=== PATIENT | female | born 1940 | race Hispanic/Latino ===

== ENCOUNTER 2020-11-06 07:09 | Day surgery (SDC) | payer OTHER ==
[2020-11-06] MEDS ORDERED: Ringers Lactate 1,000 ML IV ONE (07:39)
--- NOTE | 2020-11-06 09:35 | ENDO RPT ---
[address], [address] COLONOSCOPY PROCEDURE REPORT EXAM DATE: 11/06/2020 PATIENT NAME: Netta Vasquez MR #: [id number] BIRTHDATE: 1940 ATTENDING: Blair Marsh DR STATUS: outpatient DOG LICENSE OFFICER SUPERVISOR: Ayesha Edmondson RN and Amparo Bustamante CST INDICATIONS: The patient is a 80 yr old Female here for a colonoscopy due to colon cancer screening and diverticulosis PROCEDURE PERFORMED: Flexible Sigmoidoscopy MEDICATIONS: Per Anesthesia. ESTIMATED BLOOD LOSS: None CONSENT: The patient understands the risks and benefits of the procedure and understands that these risks include, but are not limited to: sedation, allergic reaction, infection, perforation and/or bleeding. Alternative means of evaluation and treatment include, among others: physical exam, x-rays, and/or surgical intervention. The patient elects to proceed with this endoscopic procedure. DESCRIPTION OF PROCEDURE: During intra-op preparation period all mechanical medical equipment was checked for proper function. Hand hygiene and appropriate measures for infection prevention was taken. Procedure, possible complications, alternatives including, but not limited to possibility of bleeding, perforation, tear, infection, sepsis, need for surgery, need for blood transfusion, were explained to the patient. After the risks, benefits and alternatives of the procedure were thoroughly explained, Informed consent was verified, confirmed and timeout was successfully executed by the treatment team. The patient was placed in the left lateral position. A digital rectal exam was performed and revealed internal hemorrhoids and A digital rectal exam was performed and revealed external hemorrhoids. After appropriate level of anesthesia, the scope was passed. The EC-[id number] ([id number]) and EC-[id number] ([id number]) endoscope was introduced through the anus and advanced to the sigmoid colon as the sigmoid colon was tortuous with angulation. The quality of the prep was fair. The instrument was then slowly withdrawn as the colon was NOT fully examined. Scope withdrawal time was 5 minutes. COLON FINDINGS: There was severe diverticulosis noted in the sigmoid colon with associated tortuosity, angulation, colonic spasm and petechiae. No bleeding was noted from the diverticulosis. Retroflexed views revealed no abnormalities. The scope was then completely withdrawn from the patient and the procedure terminated. ADVERSE EVENTS: There were no complications. IMPRESSIONS: 1. There was severe diverticulosis noted in the sigmoid colon 2. Internal hemorrhoids RECOMMENDATIONS: 1. avoid NSAIDS for 2 weeks 2. follow-up: office 2 week(s) 3. Monitor for any evidence of rectal bleeding. 4. yearly hemoquant 5. hemorrhoidal hygiene 6. increase dietary water 7. barium enema RECALL: for Colonoscopy. Blair Marsh DR eSigned: Blair Marsh DR 11/06/2020 9:34 AM cc: CPT CODES: ICD9 CODES: PATIENT NAME: Netta Vasquez MR#: [id number]
[2020-11-06] MEDS ORDERED: propofoL 200 MG/20 ML VIAL IV ONE ×2 (10:03)
[2020-11-06] MEDS ORDERED: LIDOCAINE 1% MPF 30 ML VIAL ONE (10:03)
[2020-11-06] MEDS ORDERED: GLYCOPYRROLATE 0.2 MG/ML SYR ONE (10:03)
[2020-11-06] MEDS ORDERED: MIDAZOLAM HCL 2 MG/2 ML INJ ONE (10:03)
[2020-11-06 10:53] VITALS: TEMP 96.7
[2020-11-06 10:54] VITALS: BP 106/83; O2SAT 99
== END 2020-11-06 10:10 | disposition home or self-care (01) ==
LOC: OR 07:09
PROVIDERS: ATTEND Surgery
PROC: 0DJD8ZZ Inspection of Lower Intestinal Tract, Via Natural or Artificial Opening Endoscopic (ICD-10-PCS; principal; 2020-11-06 08:30)
DX: K57.30 Diverticulosis of large intestine without perforation or abscess without bleeding (principal); K64.8 Other hemorrhoids; Z20.822 Contact with and (suspected) exposure to COVID-19; Z86.010 Personal history of colon polyps
CPT/HCPCS: 45378; U0003; J2704 ×2; J2250; J7120

== ENCOUNTER 2021-06-25 07:14 | Day surgery (SDC) | payer OTHER ==
[2021-06-25] MEDS ORDERED: Ringers Lactate 1,000 ML IV ONE (07:34)
[2021-06-25] MEDS ORDERED: propofoL 200 MG/20 ML VIAL IV ONE ×2 (08:26→08:36)
[2021-06-25] MEDS ORDERED: LIDOCAINE 1% MPF 5 ML VIAL ONE (08:26)
--- NOTE | 2021-06-25 09:06 | ENDO RPT ---
[address], [address] COLONOSCOPY PROCEDURE REPORT EXAM DATE: 06/25/2021 PATIENT NAME: Netta Vasquez MR #: [id number] BIRTHDATE: 1940 ATTENDING: Blair Marsh DR STATUS: outpatient SAND MILL GRINDER: Abraham Prince and Erica Castaneda RN INDICATIONS: The patient is a 80 yr old Female here for a colonoscopy due to colon cancer screening and Stricture PROCEDURE PERFORMED: Colonoscopy with biopsy MEDICATIONS: Per Anesthesia. ESTIMATED BLOOD LOSS: None CONSENT: The patient understands the risks and benefits of the procedure and understands that these risks include, but are not limited to: sedation, allergic reaction, infection, perforation and/or bleeding. Alternative means of evaluation and treatment include, among others: physical exam, x-rays, and/or surgical intervention. The patient elects to proceed with this endoscopic procedure. DESCRIPTION OF PROCEDURE: During intra-op preparation period all mechanical medical equipment was checked for proper function. Hand hygiene and appropriate measures for infection prevention was taken. Procedure, possible complications, alternatives including, but not limited to possibility of bleeding, perforation, tear, infection, sepsis, need for surgery, need for blood transfusion, were explained to the patient. After the risks, benefits and alternatives of the procedure were thoroughly explained, Informed consent was verified, confirmed and timeout was successfully executed by the treatment team. The patient was placed in the left lateral position. A digital rectal exam was performed and revealed internal hemorrhoids. After appropriate level of anesthesia, the scope was passed. The EC-[id number] ([id number]) endoscope was introduced through the anus and advanced to the descending colon. The quality of the prep was poor. The instrument was then slowly withdrawn as the colon was fully examined. Scope withdrawal time was 15 minutes. COLON FINDINGS: There was moderate diverticulosis noted in the sigmoid colon and descending colon with associated angulation, tortuosity, colonic narrowing, luminal narrowing and petechiae. A biopsy was performed with cold forcepts from the area of colonic narrowing @ 45cm from verge. No bleeding was noted from the diverticulosis. Retroflexed views revealed no abnormalities. The scope was then completely withdrawn from the patient and the procedure terminated. ADVERSE EVENTS: There were no complications. IMPRESSIONS: 1. There was moderate diverticulosis noted in the sigmoid colon and descending colon 2. Colonic stricture RECOMMENDATIONS: 1. avoid NSAIDS for 2 weeks 2. await biopsy results 3. follow-up: office 2 week(s) 4. Monitor for any evidence of rectal bleeding. 5. hemorrhoidal hygiene 6. yearly hemoquant 7. low fiber / diverticular diet RECALL: Blair Marsh DR eSigned: Blair Marsh DR 06/25/2021 9:06 AM cc: CPT CODES: ICD9 CODES: PATIENT NAME: Netta Vasquez MR#: [id number]
[2021-06-25 10:04] VITALS: BP 168/64; O2SAT 100
[2021-06-25 10:05] VITALS: TEMP 97
== END 2021-06-25 09:58 | disposition home or self-care (01) ==
LOC: OR 07:14
PROVIDERS: ATTEND Surgery
PROC: 0DBL8ZX Excision of Transverse Colon, Via Natural or Artificial Opening Endoscopic, Diagnostic (ICD-10-PCS; principal; 2021-06-25 08:30)
DX: K56.699 Other intestinal obstruction unspecified as to partial versus complete obstruction (principal); Z86.010 Personal history of colon polyps; Z20.822 Contact with and (suspected) exposure to COVID-19; K64.8 Other hemorrhoids; K57.30 Diverticulosis of large intestine without perforation or abscess without bleeding
CPT/HCPCS: 88305; 45380; U0003; J2704 ×2; J7120

== ENCOUNTER 2023-06-11 09:15 | Observation (INO) | payer OTHER ==
[2023-06-11] MEDS ORDERED: AMIODARONE HCL 150 MG/3 ML INJ IV ONE (09:25)
[2023-06-11] MEDS ORDERED: AMIODARONE IN DEXTROSE,ISO-OSM 360 MG/200 ML BAG IV ONE (09:25)
[2023-06-11 09:50] LABS: Absolute Basophils 0.1 K/uL (0-0.5); Absolute Eosinophils 0.1 K/uL (0-0.5); Absolute Lymphocytes (CBC) 0.8 K/uL (0.7-4.9); Absolute Monocytes 0.4 K/uL (0.1-1.3); Absolute Neutrophil 5.4 K/uL (1.8-8.0); Basophils % 1.2 % (0-1.3); Eosinophils % 1.1 % (0-4.4); Hematocrit 29.8 % (36.0-45.0); Hemoglobin 10.1 g/dL (12.0-15.0); Lymphocytes % 11.5 % (15.3-44.8); MCH 30.2 pg (27.0-35.0); MCHC 33.8 g/dL (32.0-36.0); MCV 89.3 fL (80-100); MPV 8.1 fL (7.6-11.3); Monocytes % 6.2 % (3.3-12.3); Platelets 350 thou/uL (152-406); RBC Red Blood Cell Count 3.34 M/uL (3.86-4.86); Red Cell Distribution Width 17.9 % (12.1-15.2)
[2023-06-11 09:51] LABS: PT Prothrombin Time 12.9 SECONDS (9.5-12.5); Protime INR 1.18
[2023-06-11 10:06] LABS: Albumin 2.9 g/dL (3.4-5.0); Albumin/Globulin Ratio 0.7 (1.1-1.8); Anion Gap 9.3 mEq/L (5.0-15.0); Bilirubin Direct 0.3 mg/dL (0-0.2); Bilirubin Indirect, Calculated 0.3 mg/dL (0.2-0.8); Bilirubin Total 0.6 mg/dL (0.2-1.0); Globulin 4.4 g/dL (2.3-3.5); Potassium 4.3 mEq/L (3.5-5.1); Protein, Total 7.3 g/dL (6.4-8.2); Troponin High Sensitivity 13.4 pg/mL (<58.9)
--- NOTE | 2023-06-11 10:16 | ER ---
Nurse's Notes [facility] Name: Netta Vasquez Age: 82 yrs Sex: Female : 1940 Arrival Date: 06/11/2023 Time: 09:15 Bed 5 Private MD: Diagnosis: Palpitations, atrial fibrillation with RVR Presentation: 06/10 09:22 Initial Sepsis Screen: Does the patient meet any 2 criteria? No. Patient's initial kc6 sepsis screen is negative. Does the patient have a suspected source of infection? No. Patient's initial sepsis screen is negative. 09:28 Chief complaint: Patient states: had open heart surgery for aortic aneurysm and a valve iw replacement on May 21, was having her follow up appt with [facility] and was noted to be in Afib RVR , sent to ER for treatment. Coronavirus screen: At this time, the client does not indicate any symptoms associated with coronavirus-19. Ebola Screen: Patient negative for fever greater than or equal to 101.5 degrees Fahrenheit, and additional compatible Ebola Virus Disease symptoms Patient denies exposure to infectious person. Patient denies travel to an Ebola-affected area in the 21 days before illness onset. No symptoms or risks identified at this time. Risk Assessment: Do you want to hurt yourself or someone else? Patient reports no desire to harm self or others. Onset of symptoms was June 11, 2023. 09:28 Method Of Arrival: Ambulatory iw 09:28 Acuity: AMRINA 2 iw Historical: - Allergies: 09:22 No Known Allergies; kc6 - PMHx: 09:22 aortic aneurysm; Hypertensive disorder; kc6 - PSHx: 09:22 foot surgery; Coronary artery bypass graft; kc6 - Immunization history:: Adult Immunizations up to date. - Infectious Disease History:: Denies. - Social history:: Smoking status: Patient denies any tobacco usage or history of. Screenin: [facility] ED Fall Risk Assessment (Adult) History of falling in the last 3 months, kc6 including since admission No falls in past 3 months (0 pts) Confusion or Disorientation No (0 pts) Intoxicated or Sedated No (0 pts) Impaired Gait No (0 pts) Mobility Assist Device Used No (0 pt) Altered Elimination No (0 pt) Score/Fall Risk Level 0 - 2 = Low Risk. Abuse screen: Denies threats or abuse. Denies injuries from another. Nutritional screening: No deficits noted. Tuberculosis screening: No symptoms or risk factors identified. Assessment: 09:22 General: Appears in no apparent distress. comfortable, well groomed, well developed, kc6 Behavior is calm, cooperative, appropriate for age. Pain: Denies pain. Neuro: Level of Consciousness is awake, alert, obeys commands, Oriented to person, place, time, situation, Appropriate for age. Cardiovascular: Denies chest pain, Heart tones S1 S2 present Capillary refill < 3 seconds Rhythm is atrial fibrillation with rapid ventricular response. Respiratory: Airway is patent Trachea midline Respiratory effort is even, unlabored, Respiratory pattern is regular, symmetrical, Denies shortness of breath. GI: No signs and/or symptoms were reported involving the gastrointestinal system. : No signs and/or symptoms were reported regarding the genitourinary system. EENT: No signs and/or symptoms were reported regarding the EENT system. Derm: No signs and/or symptoms reported regarding the dermatologic system. Skin is intact, is healthy with good turgor, Skin is pink, warm \T\ dry. Musculoskeletal: No signs and/or symptoms reported regarding the musculoskeletal system. Circulation, motion, and sensation intact. Capillary refill < 3 seconds, Range of motion: intact in all extremities. 10:13 Reassessment: pt appears to be sinus allan at bpm. Per Dr. Winter , discontinue the drip kc6 and repeat EKG. 10:22 Reassessment: Patient appears in no apparent distress at this time. No changes from kc6 previously documented assessment. Patient and/or family updated on plan of care and expected duration. Pain level reassessed. Patient is alert, oriented x 3, equal unlabored respirations, skin warm/dry/pink. 11:22 Reassessment: Patient appears in no apparent distress at this time. No changes from kc6 previously documented assessment. Patient and/or family updated on plan of care and expected duration. Pain level reassessed. Patient is alert, oriented x 3, equal unlabored respirations, skin warm/dry/pink. 12:20 Reassessment: Patient appears in no apparent distress at this time. No changes from kc6 previously documented assessment. Patient and/or family updated on plan of care and expected duration. Pain level reassessed. Patient is alert, oriented x 3, equal unlabored respirations, skin warm/dry/pink. 13:14 Reassessment: Patient appears in no apparent distress at this time. No changes from kc6 previously documented assessment. Patient and/or family updated on plan of care and expected duration. Pain level reassessed. Patient is alert, oriented x 3, equal unlabored respirations, skin warm/dry/pink. Vital Signs: 09:22 BP 130 / 87; Pulse 99; Resp 15 S; Temp 98.2(TE); Pulse Ox 98% on R/A; Weight 68.04 kg kc6 (R); Height 5 ft. 1 in. ; Pain 0/10; 09:54 BP 128 / 61; Pulse 106; Resp 16 S; Pulse Ox 96% on R/A; kc6 10:14 BP 128 / 62; Pulse 49; Resp 16 S; Pulse Ox 95% on R/A; kc6 10:51 BP 130 / 61; Pulse 59; Resp 16 S; Pulse Ox 92% on R/A; kc6 11:22 BP 123 / 53; Pulse 50; Resp 16; Pulse Ox 97% ; ko1 11:47 BP 109 / 51; Pulse 52; Resp 16 S; Pulse Ox 96% on R/A; kc6 13:14 BP 113 / 65; Pulse 52; Resp 16 S; Pulse Ox 93% on R/A; kc6 09:22 Body Mass Index 28.34 (68.04 kg, 154.94 cm) kc6 09:22 Pain Scale: Adult kc6 Vitals: 10:12 Cardiac Rhythm Assessment Sinus allan. kc6 11:22 Cardiac Rhythm Assessment Sinus allan. ko1 ED Course: 09:16 Patient arrived in ED. im 09:18 Yimi Winter MD is Attending Physician. sp3 09:22 Arm band placed on. EKG completed in triage. Results shown to MD. kc6 09:22 Patient has correct armband on for positive identification. Placed in gown. Bed in low kc6 position. Call light in reach. Side rails up X2. Adult w/ patient. Client placed on continuous cardiac and pulse oximetry monitoring. NIBP monitoring applied. desk monitor on. Door closed. Noise minimized. Lights dimmed. Warm blanket given. Pillow given. 09:22 Inserted saline lock: 20 gauge in right antecubital area, using aseptic technique. kc6 Blood collected. 09:33 Triage completed. iw 09:48 XRAY Chest (1 view) In Process Unspecified. EDMS 09:50 Liz Latif, ALEA is Primary Nurse. kc6 10:16 Jatin Parikh is Hospitalizing Provider. sp3 11:11 Hospitalizing Provider role handed off by Jatin Parikh sp3 11:11 Jose Boone MD is Hospitalizing Provider. sp3 11:23 Provided Education on: medications, admission. ko1 11:23 No provider procedures requiring assistance completed. Patient admitted, IV remains in ko1 place. Administered Medications: 10:15 Discontinued: [id number] mg, d5w iv 500 ml IVPB at 1 mg/min continuous; for 6 hrs, kc6 then change to 0.5 mg/min 09:43 Drug: amiodarone IVP 300 mg IVP once Route: IVP; Site: right antecubital; kc6 09:57 Follow up: Response: No adverse reaction; Cardiac rhythm changed kc6 09:44 Drug: amiodarone IVPB 900 mg, D5W IV 500 ml IVPB at 1 mg/min continuous; for 6 hrs, kc6 then change to 0.5 mg/min Route: IVPB; Rate: 1 mg/min; Site: right antecubital; 10:51 Follow up: Response: No adverse reaction; Cardiac rhythm changed; IV Status: Order to kc6 discontinue infusion Medication: 11:23 VIS not applicable for this client. ko1 Outcome: 10:16 Decision to Hospitalize by Provider. sp3 11:23 Admitted to ER Hold. Please see [facility] for further documentation. ko1 11:23 Condition: stable 11:23 Instructed on the need for admit, 13:30 Patient left the ED. ko1 Signatures: Dispatcher [employer] EDMS Fiordaliza Curtis RN RN iw Patel, Setul, MD MD sp3 Liz Latif RN RN kc6 Ashley Bender RN RN ko1 Amelia Patino Corrections: (The following items were deleted from the chart) 09:53 09:22 Allergies: No Known Allergies; kc6 kc6 09:53 09:22 PMHx: Coronary atherosclerosis; kc6 kc6
--- NOTE | 2023-06-11 10:16 | EDPHYS ---
Physician Documentation [facility] Name: Netta Vasquez Age: 82 yrs Sex: Female : 1940 Arrival Date: 06/11/2023 Time: 09:15 Bed 5 Private MD: ED Physician Yimi Winter HPI: 06/10 09:31 This 82 yrs old Female presents to ER via Unassigned with complaints of A-fib. 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 Patient is not currently anticoagulated. Patient been tried on amiodarone in the past which was discontinued. Clean Up Supervisor has asked us to restart amiodarone upon arrival. She denies any chest pain, shortness of breath, back pain, bleeding, abdominal pain, vomiting, diarrhea, or any other signs or symptoms other than the palpitations. ROS otherwise negative.. Historical: - Allergies: 09:22 No Known Allergies; kc6 - PMHx: 09:22 aortic aneurysm; Hypertensive disorder; kc6 - PSHx: 09:22 foot surgery; Coronary artery bypass graft; kc6 - Immunization history:: Adult Immunizations up to date. - Infectious Disease History:: Denies. - Social history:: Smoking status: Patient denies any tobacco usage or history of. ROS: 09:32 Constitutional: Negative for fever, chills, and weight loss, Eyes: Negative for injury, sp3 pain, redness, and discharge, ENT: Negative for injury, pain, and discharge, Neck: Negative for injury, pain, and swelling, Respiratory: Negative for shortness of breath, cough, wheezing, and pleuritic chest pain, Abdomen/GI: Negative for abdominal pain, nausea, vomiting, diarrhea, and constipation, Back: Negative for injury and pain, MS/Extremity: Negative for injury and deformity, Skin: Negative for injury, rash, and discoloration, Neuro: Negative for headache, weakness, numbness, tingling, and seizure, Psych: Negative for depression, anxiety, suicide ideation, homicidal ideation, and hallucinations, Allergy/Immunology: Negative for hives, rash, and allergies, Endocrine: Negative for neck swelling, polydipsia, polyuria, polyphagia, and marked weight changes, 09:32 All other systems are negative, Exam: 09:32 Constitutional: This is a well developed, well nourished patient who is awake, alert, sp3 and in no acute distress. Head/Face: Normocephalic, atraumatic. Eyes: Pupils equal round and reactive to light, extra-ocular motions intact. Lids and lashes normal. Conjunctiva and sclera are non-icteric and not injected. Cornea within normal limits. Periorbital areas with no swelling, redness, or edema. Neck: Trachea midline, no thyromegaly or masses palpated, and no cervical lymphadenopathy. Supple, full range of motion without nuchal rigidity, or vertebral point tenderness. No Meningismus. Chest/axilla: Normal chest wall appearance and motion. Nontender with no deformity. No lesions are appreciated. Respiratory: Lungs have equal breath sounds bilaterally, clear to auscultation and percussion. No rales, rhonchi or wheezes noted. No increased work of breathing, no retractions or nasal flaring. Abdomen/GI: Soft, non-tender, with normal bowel sounds. No distension or tympany. No guarding or rebound. No evidence of tenderness throughout. Back: No spinal tenderness. No costovertebral tenderness. Full range of motion. Skin: Warm, dry with normal turgor. Normal color with no rashes, no lesions, and no evidence of cellulitis. MS/ Extremity: Pulses equal, no cyanosis. Neurovascular intact. Full, normal range of motion. Neuro: Awake and alert, GCS 15, oriented to person, place, time, and situation. Cranial nerves II-XII grossly intact. Motor strength 5/5 in all extremities. Sensory grossly intact. Cerebellar exam normal. Normal gait. Psych: Awake, alert, with orientation to person, place and time. Behavior, mood, and affect are within normal limits. 09:32 Cardiovascular: Tachycardic in 110s with irregularly irregular rhythm., 09:32 ECG was reviewed by the Attending Physician. EKG demonstrates atrial fibrillation with ventricular rate 110 with normal axis, normal QRS and nonspecific diffuse ST's ST changes without evidence of acute ischemia. Vital Signs: 09:22 BP 130 / 87; Pulse 99; Resp 15 S; Temp 98.2(TE); Pulse Ox 98% on R/A; Weight 68.04 kg kc6 (R); Height 5 ft. 1 in. ; Pain 0/10; 09:54 BP 128 / 61; Pulse 106; Resp 16 S; Pulse Ox 96% on R/A; kc6 10:14 BP 128 / 62; Pulse 49; Resp 16 S; Pulse Ox 95% on R/A; kc6 10:51 BP 130 / 61; Pulse 59; Resp 16 S; Pulse Ox 92% on R/A; kc6 11:22 BP 123 / 53; Pulse 50; Resp 16; Pulse Ox 97% ; ko1 11:47 BP 109 / 51; Pulse 52; Resp 16 S; Pulse Ox 96% on R/A; kc6 13:14 BP 113 / 65; Pulse 52; Resp 16 S; Pulse Ox 93% on R/A; kc6 09:22 Body Mass Index 28.34 (68.04 kg, 154.94 cm) kc6 09:22 Pain Scale: Adult kc6 MDM: 09:20 Patient medically screened. sp3 09:33 Data reviewed: vital signs, nurses notes, old medical records, lab test result(s), EKG, sp3 radiologic studies. ED course: 82-year-old female with 3 weeks postop from thoracic aortic repair now with recurrent A-fib RVR. Differential diagnosis includes structural heart disease, postsurgical complication, [place] sick sinus syndrome, [place] atrial fibrillation, ACS, among others. Patient not having any chest pain and I do not believe is having an acute PA. Amiodarone bolus and drip have been started. Patient will be admitted and further anticoagulation as indicated after consultation with Dr. Raya.. 10:15 ED course: Labs within normal limits except BNP at 5600. Patient is now in a sinus sp3 bradycardia at 52 bpm. Patient admitted to hospitalist service.. 06/10 09:23 Order name: Basic Metabolic Panel; Complete Time: 10:07 sp3 06/10 09:23 Order name: CBC with Diff; Complete Time: 10:07 sp3 06/10 09:23 Order name: LFT's; Complete Time: 10:07 sp3 06/10 09:23 Order name: Magnesium; Complete Time: 10:07 sp3 06/10 09:23 Order name: NT PRO-BNP; Complete Time: 10:07 sp3 06/10 09:23 Order name: PT-INR; Complete Time: 10:07 sp3 06/10 09:23 Order name: Troponin HS; Complete Time: 10:07 sp3 06/10 09:23 Order name: XRAY Chest (1 view); Complete Time: 11:38 sp3 06/10 09:23 Order name: Cardiac monitoring; Complete Time: 09:41 sp3 06/10 09:23 Order name: EKG - Nurse/Tech; Complete Time: 09:42 sp3 06/10 09:23 Order name: IV Saline Lock; Complete Time: 09:42 sp3 06/10 09:23 Order name: Labs collected and sent; Complete Time: 09:42 sp3 06/10 09:23 Order name: O2 Per Protocol; Complete Time: 09:23 sp3 06/10 09:23 Order name: O2 Sat Monitoring; Complete Time: 09:23 sp3 06/10 09:23 Order name: NPO; Complete Time: 09:23 sp3 Administered Medications: 10:15 Discontinued: [id number] mg, d5w iv 500 ml IVPB at 1 mg/min continuous; for 6 hrs, kc6 then change to 0.5 mg/min 09:43 Drug: amiodarone IVP 300 mg IVP once Route: IVP; Site: right antecubital; kc6 09:57 Follow up: Response: No adverse reaction; Cardiac rhythm changed kc6 09:44 Drug: amiodarone IVPB 900 mg, D5W IV 500 ml IVPB at 1 mg/min continuous; for 6 hrs, kc6 then change to 0.5 mg/min Route: IVPB; Rate: 1 mg/min; Site: right antecubital; 10:51 Follow up: Response: No adverse reaction; Cardiac rhythm changed; IV Status: Order to kc6 discontinue infusion Disposition Summary: 06/11/23 10:16 Hospitalization Ordered Notes: Hospitalization Status: Inpatient Admission sp3 Condition: Stable sp3 Problem: an acute exacerbation sp3 Symptoms: have worsened sp3 Bed/Room Type: Standard sp3 Provider: Jose Boone(06/11/23 11:11) sp3 Location: Telemetry/MedSurg (Inpatient)(06/11/23 12:47) bd Room Assignment: [facility](06/11/23 12:47) bd Diagnosis - Palpitations, atrial fibrillation with RVR sp3 Forms: - Medication Reconciliation Form sp3 - SBAR form sp3 - Leadership Thank You Letter sp3 Signatures: Dispatcher [employer] EDLA Marlene Lerner Setul, MD MD sp3 Liz Latif RN RN kc6 Corrections: (The following items were deleted from the chart) 09:24 09:23 Chest Single View+RAD.RAD.BRZ ordered. [facility] EDLA 09:53 09:22 Allergies: No Known Allergies; 6 kc6 09:53 09:22 PMHx: Coronary atherosclerosis; kc6 kc6 11:11 10:16 Jatin Parikh sp3 sp3 11:22 10:16 Telemetry/MedSurg (Inpatient) sp3 bd 11:22 10:16 sp3 bd 12:47 11:22 [facility] ER HOLD bd bd 12:47 11:22 ERHOLD- bd bd
--- NOTE | 2023-06-11 11:16 | RAD REPORT ---
EXAM DESCRIPTION: Teodoro Single View06/11/2023 9:46 am CLINICAL HISTORY: PALPITATIONS COMPARISON: Colon Barium Enema dated 11/20/2020 TECHNIQUE: Portable AP view of the chest. FINDINGS: Hazy bibasilar airspace opacities, could reflect mild edema. No pneumothorax or effusion. [id number] cardiomegaly. Sequelae of median sternotomy. Mediastinal contours are otherwise unr emarkable. IMPRESSION: Hazy bibasilar airspace opacities with cardiomegaly, could reflect mild pulmonary edema.
[2023-06-11 15:48] VITALS: BMI 28.5
--- NOTE | 2023-06-11 18:04 | P.SSS ---
Patient History Date of Service: 06/11/23 Reason for admission: RAPID A FIB History of Present Illness: JOSELUIS HAS RECENTLY SURGERY FOR TAA THAT WAS FOUND BY PREVENTIVE HEART SCAN TEST AT [facility]. SHE DID WELL WITH SURGERY. SHE WAS AT DR GHOSH AND DR. APPLE TODAY. SHE WAS FOUND TO BE IN RAPID A FIB DESPITE BEING ON AMIODARONE BID. THEY SENT HER TO ER. SHE IS ON AMIO DRIPS BACK IN [place] NOW. SHE MAY GO HOME IN AM SHE LOOKS GREAT. Allergies No Known Allergies Allergy (Verified 06/25/21 07:47) Home medications list reviewed: Yes Home Medications: Amiodarone HCl [Cordarone*] 200 mg PO BID 06/11/23 Aspirin Chewable [Aspirin Chewable*] 81 mg PO DAILY 06/11/23 Cyanocobalamin (Vitamin B-12) [Vitamin B-12] 500 mg PO DAILY 06/11/23 Ferrous Sulfate [Ferrous Sulfate*] 325 mg PO DAILY 06/11/23 Metoprolol Tartrate [Lopressor*] 12.5 mg PO BID 06/11/23 - Past Medical/Surgical History Has patient received pneumonia vaccine in the past: Yes -: Hypertension -: CABG 05/22/23 - Social History Smoking Status: Never smoker Alcohol use: No CD- Drugs: No Caffeine use: Yes Place of Residence: Home Review of Systems 10-point ROS is otherwise unremarkable General: As per HPI Physical Examination - Vital Signs Temperature: 97.6 F Blood Pressure: 135/66 Pulse: 56 Respirations: 17 Pulse Ox (%): 96 - Physical Exam General: Alert, In no apparent distress HEENT: Atraumatic, PERRLA, Mucous membr. moist/pink, EOMI, Sclerae nonicteric Neck: Supple, 2+ carotid pulse no bruit, No LAD, Without JVD or thyroid abnormality Respiratory: Clear to auscultation bilaterally, Normal air movement Cardiovascular: Regular rate/rhythm, Normal S1 S2 Gastrointestinal: Normal bowel sounds, No tenderness Musculoskeletal: No tenderness Integumentary: No rashes Neurological: Normal gait, Normal speech, Normal strength at 5/5 x4 extr, Normal tone, Normal affect Lymphatics: No axilla or inguinal lymphadenopathy - Studies Laboratory Data (last 24 hrs) 06/11/23 06/11/23 06/11/23 09:35 09:35 09:35 WBC 6.80 Hgb 10.1 L Hct 29.8 L Plt Count 350 PT 12.9 H INR 1.18 Sodium 137 Potassium 4.3 BUN 13 Creatinine 0.99 Glucose 124 H Magnesium 2.0 Total Bilirubin 0.6 AST 20 ALT 19 Alkaline Phosphatase 102 - Diagnosis (Problem(s)) (1) Atrial fibrillation Current Visit: Yes Status: Acute Plan: STABLE. ON AMIO ALREAADY ADD ELIQUIS STOP ASA. MAY GO HOME IN AM. - Disposition Disposition: ROUTINE DISCHARGE
[2023-06-11] MEDS: AMIODARONE HCL 200 MG TAB PO SCH (20:04)
[2023-06-11] MEDS: APIXABAN 5 MG TABLET PO SCH (20:04)
[2023-06-11] MEDS: METOPROLOL TAR 25 MG TAB PO SCH (20:04)
[2023-06-12 08:06] VITALS: O2SAT 95
[2023-06-12] MEDS: FERROUS SULFATE 325 MG TAB PO SCH (08:42)
[2023-06-12 08:59] VITALS: BP 121/61; TEMP 97.6
[2023-06-12] MEDS: CYANOCOBALAMIN 500 MCG PO SCH (09:00)
[2023-06-12] MEDS ORDERED: ASPIRIN 81 MG CHEWABLE TABLET PO SCH (09:00)
--- NOTE | 2023-06-12 10:43 | P.CNS ---
Date of Consult: 06/12/23 Chief Complaint: RAPID A FIB History of Present Illness: Patient with PMH of pAF, presented to the hospital after she was found to be in RVR in the office, upon presenting to the emergency room, patient converted into sinus rhythm, denies having any cardiac symptoms. Allergies No Known Allergies Allergy (Verified 06/25/21 07:47) Home Medications: Amiodarone HCl [Cordarone*] 200 mg PO BID 06/11/23 Aspirin Chewable [Aspirin Chewable*] 81 mg PO DAILY 06/11/23 Cyanocobalamin (Vitamin B-12) [Vitamin B-12] 500 mg PO DAILY 06/11/23 Ferrous Sulfate [Ferrous Sulfate*] 325 mg PO DAILY 06/11/23 Metoprolol Tartrate [Lopressor*] 12.5 mg PO BID 06/11/23 - Past Medical/Surgical History -: Hypertension -: CABG 05/22/23 - Social History Alcohol use: No CD- Drugs: No Caffeine use: Yes Place of Residence: Home Review of Systems 10-point ROS is otherwise unremarkable Physical Examination Temp Pulse Resp BP Pulse Ox 97.6 F 57 17 121/61 96 06/12/23 08:00 06/12/23 08:00 06/12/23 08:00 06/12/23 08:00 06/12/23 08:00 General: Alert, Oriented x3 HEENT: Atraumatic Neck: Supple Respiratory: Clear to auscultation bilaterally Cardiovascular: No edema, Normal S1 S2 Gastrointestinal: Normal bowel sounds - Problems (1) Atrial fibrillation Current Visit: Yes Status: Acute Plan: Continue Amiodarone 200 mg po BID Continue Lopressor 12.5 mg po BID Continue Eliquis 5 mg o BID D/C ASA ok to discharge.
--- NOTE | 2023-06-12 13:29 | EKG ---
Test Date: 2023-06-11 Test Time: 10:14:32 Audit Control Clerk: MAYITO MEASUREMENT RESULTS: Intervals: Rate: 53 MO: 222 QRSD: 70 QT: 460 QTc: 431 [place]: P: 25 MO: 222 QRS: 15 T: 42 INTERPRETIVE STATEMENTS: Sinus bradycardia with 1st degree AV block Nonspecific T wave abnormality Abnormal ECG Compared to ECG 06/11/2023 09:26:52 First degree AV block now present Atrial fibrillation no longer present Possible ischemia no longer present T-wave abnormality still present Electronically Signed On 06-12-23 13:27:12 CDT by Nathan Raya
--- NOTE | 2023-06-12 13:29 | EKG ---
Test Date: 2023-06-11 Test Time: 09:26:52 Preform Machine Operator: FAUZIA MEASUREMENT RESULTS: Intervals: Rate: 109 CO: QRSD: 78 QT: 308 QTc: 414 [place]: P: CO: QRS: 0 T: 200 INTERPRETIVE STATEMENTS: Atrial fibrillation with rapid ventricular response T wave abnormality, consider lateral ischemia Abnormal ECG No previous ECG available for comparison Electronically Signed On 06-12-23 13:27:16 CDT by Nathan Raya
--- NOTE | 2023-06-12 22:04 | P.PN ---
Subjective Date of Service: 06/12/23 Chief Complaint: RAPID A FIB Subjective: Improving JOSELUIS CAME WITH RAPID A FIB. DID WELL AND HAD CHANGED TO NSR AFTER AMIODARONE IV DRIP. I STARTED HER ON ELIQUIS SHE HAS RECURRENT A FIB. Physical Examination - Vital Signs Temperature: 97.6 F Blood Pressure: 121/61 Pulse: 57 Respirations: 17 Pulse Ox (%): 96 Assessment And Plan - Current Problems (Diagnosis) (1) Atrial fibrillation Status: Acute Plan: STABLE. ON AMIO ALREAADY ADD ELIQUIS STOP ASA. MAY GO HOME IN AM.
== END 2023-06-12 13:22 | disposition home or self-care (01) ==
LOC: ER 09:15 → 2ND 12:34 → INTOOBSV 12:34
PROVIDERS: ADMIT Internal Medicine; ATTEND Internal Medicine
DX: I48.91 Unspecified atrial fibrillation (principal); I10 Essential (primary) hypertension; Z95.1 Presence of aortocoronary bypass graft
CPT/HCPCS: 96365; 93005 ×2; 85025; 80048; 36415; 83735; 85610; 80076; 84484; 83880; 71045; 99285; J0282 ×2; G0378 ×3

== ENCOUNTER 2023-07-14 16:06 | Observation (INO) | payer MEDICAID ==
[2023-07-14 16:52] LABS: Absolute Eosinophils 0.1 K/uL (0-0.5); Absolute Lymphocytes (CBC) 1.8 K/uL (0.7-4.9); Absolute Monocytes 0.4 K/uL (0.1-1.3); Absolute Neutrophil 3.5 K/uL (1.8-8.0); Basophils % 0.3 % (0-1.3); Eosinophils % 1.1 % (0-4.4); Hemoglobin 10.7 g/dL (12.0-15.0); Lymphocytes % 31.1 % (15.3-44.8); MCH 29.6 pg (27.0-35.0); MCHC 31.6 g/dL (32.0-36.0); MCV 93.6 fL (80-100); MPV 8.8 fL (7.6-11.3); Monocytes % 6.7 % (3.3-12.3); Neutrophils % 60.8 % (41.7-73.7); Platelets 166 thou/uL (152-406); RBC Red Blood Cell Count 3.63 M/uL (3.86-4.86); Red Cell Distribution Width 18.4 % (12.1-15.2)
[2023-07-14 17:27] LABS: Anion Gap 8.9 mEq/L (5.0-15.0); Potassium 3.9 mEq/L (3.5-5.1); Troponin High Sensitivity 10.5 pg/mL (<58.9)
--- NOTE | 2023-07-14 17:40 | ER ---
Nurse's Notes [facility] Name: Netta Vasquez Age: 83 yrs Sex: Female : 1940 Arrival Date: 07/14/2023 Time: 16:06 Bed 4 Private MD: Diagnosis: Essential (primary) hypertension;Bradycardia, unspecified Presentation: 07/13 16:22 Chief complaint: Patient states: AT CARDIAC REHAB WITH HTN. Coronavirus screen: At this bp time, the client does not indicate any symptoms associated with coronavirus-19. Ebola Screen: No symptoms or risks identified at this time. Initial Sepsis Screen: Does the patient meet any 2 criteria? No. Patient's initial sepsis screen is negative. Does the patient have a suspected source of infection? No. Patient's initial sepsis screen is negative. Risk Assessment: Do you want to hurt yourself or someone else? Patient reports no desire to harm self or others. Onset of symptoms was July 14, 2023. 16:22 Method Of Arrival: Ambulatory bp 16:22 Acuity: MARINA 3 bp Triage Assessment: 16:23 General: Appears in no apparent distress. Behavior is cooperative, appropriate for age, bp anxious. Pain: Denies pain. EENT: No deficits noted. Neuro: No deficits noted. Cardiovascular: No deficits noted. Respiratory: No deficits noted. GI: No signs and/or symptoms were reported involving the gastrointestinal system. : No signs and/or symptoms were reported regarding the genitourinary system. Derm: No deficits noted. Musculoskeletal: No deficits noted. Historical: - Allergies: 16:23 No Known Allergies; bp - PMHx: 16:23 aortic aneurysm; Hypertensive disorder; bp - PSHx: 16:23 Coronary artery bypass graft; foot surgery; bp - Immunization history:: Adult Immunizations up to date. - Infectious Disease History:: Denies. - Social history:: Smoking status: Patient denies any tobacco usage or history of. Screenin:23 [facility] ED Fall Risk Assessment (Adult) History of falling in the last 3 months, rs5 including since admission No falls in past 3 months (0 pts) Confusion or Disorientation No (0 pts) Intoxicated or Sedated No (0 pts) Impaired Gait No (0 pts) Mobility Assist Device Used No (0 pt) Altered Elimination No (0 pt) Score/Fall Risk Level 0 - 2 = Low Risk Oriented to surroundings, Maintained a safe environment. Abuse screen: Denies threats or abuse. Nutritional screening: No deficits noted. Tuberculosis screening: No symptoms or risk factors identified. Assessment: 16:23 General: Appears in no apparent distress. comfortable, Behavior is calm, cooperative. rs5 Pain: Denies pain. Neuro: Level of Consciousness is awake, alert, obeys commands, Oriented to person, place, time, situation. Cardiovascular: Patient's skin is warm and dry. Rhythm is regular. Respiratory: Airway is patent Respiratory effort is even, unlabored, Respiratory pattern is regular, symmetrical. GI: Abdomen is round non-distended, Abd is soft and non tender X 4 quads. : No signs and/or symptoms were reported regarding the genitourinary system. EENT: No signs and/or symptoms were reported regarding the EENT system. Derm: Skin is intact, Skin is pink, warm \T\ dry. Musculoskeletal: Range of motion: intact in all extremities. 17:30 Reassessment: Patient and/or family updated on plan of care and expected duration. Pain rs5 level reassessed. Patient is alert, oriented x 3, equal unlabored respirations, skin warm/dry/pink. Patient denies pain at this time. 19:25 Reassessment: Patient appears in no apparent distress at this time. No changes from vc1 previously documented assessment. Patient and/or family updated on plan of care and expected duration. Pain level reassessed. Patient is alert, oriented x 3, equal unlabored respirations, skin warm/dry/pink. 19:26 Reassessment: Pt's daughter, Arin Franks [phone]. aa5 22:51 Reassessment: Patient appears in no apparent distress at this time. No changes from vc1 previously documented assessment. Patient and/or family updated on plan of care and expected duration. Pain level reassessed. Patient is alert, oriented x 3, equal unlabored respirations, skin warm/dry/pink. Vital Signs: 16:22 BP 165 / 86; Pulse 51; Resp 16; Temp 98; Pulse Ox 100% ; bp 17:05 BP 166 / 69; Pulse 54; Resp 18; Pulse Ox 99% on R/A; rs5 17:56 BP 173 / 74; Pulse 55; Resp 17; Pulse Ox 99% on R/A; rs5 18:34 BP 153 / 66; Pulse 49; Resp 16; Pulse Ox 98% ; ko1 19:24 Pulse 59; Resp 17; Pulse Ox 97% ; vc1 19:26 BP 138 / 74; vc1 22:50 BP 218 / 91; Pulse 50; Resp 17; Pulse Ox 99% ; vc1 23:00 BP 147 / 61; Pulse 56; Resp 16; Pulse Ox 100% on R/A; km8 23:42 BP 135 / 61; Pulse 60; Resp 16; Pulse Ox 100% ; vc1 ED Course: 16:07 Patient arrived in ED. im 16:18 Elliott Tan MD is Attending Physician. ec2 16:23 Triage completed. bp 16:23 Arm band placed on. bp 16:23 Patient has correct armband on for positive identification. Bed in low position. Call rs5 light in reach. Side rails up X2. 16:23 No provider procedures requiring assistance completed. rs5 16:43 Ashley Bender, RN is Primary Nurse. ko1 16:43 Basic Metabolic Panel Sent. em1 16:43 CBC with Diff Sent. em1 16:43 Troponin HS Sent. em1 16:43 Initial lab(s) drawn, by me, sent to lab. Inserted saline lock: 20 gauge in right em1 antecubital area, using aseptic technique. Blood collected. 16:58 EKG done, by ED staff, reviewed by Elliott Tan MD. em1 17:08 XRAY Chest (1 view) In Process Unspecified. EDMS 17:39 Helga Snow MD is Hospitalizing Provider. ec2 18:34 Provided Education on: call light. Client placed on continuous cardiac and pulse ko1 oximetry monitoring. NIBP monitoring applied. lunchroom monitor on. Door closed. Noise minimized. Lights dimmed. Warm blanket given. Pillow given. 23:19 Patient admitted, IV remains in place. km8 Administered Medications: 22:55 Drug: hydrALAZINE IVP 10 mg IVP once Route: IVP; Site: left antecubital; km8 23:19 Follow up: Response: No adverse reaction; Blood pressure is lowered km8 Medication: 17:55 VIS not applicable for this client. rs5 Outcome: 17:39 Discharge ordered by . ec2 17:39 Decision to Hospitalize by Provider. ec2 07/14 00:15 Admitted to Med/surg accompanied by nurse, via stretcher, room 208, with chart, km8 Condition: stable Instructed on the need for admit, Demonstrated understanding of instructions, 00:21 Patient left the ED. km8 Signatures: Dispatcher [employer] Buddy Kent em1 Janette Khoury, RN RN aa5 Dennis Fields, RN RN bp Pamella Cuevas RN RN vc1 Ashley Bender, ALEA RN ko1 Jonas Mullen, RN RN rs5 Amelia Patino Edwin, MD MD ec2 Isabel Mccoy, RN RN km8
--- NOTE | 2023-07-14 17:40 | EDPHYS ---
Physician Documentation [facility] Name: Netta Vasquez Age: 83 yrs Sex: Female : 1940 Arrival Date: 07/14/2023 Time: 16:06 Bed 4 Private MD: ED Physician Elliott Tan HPI: 07/13 16:59 This 83 yrs old Female presents to ER via Ambulatory with complaints of High ec2 Blood Pressure, Low pulse. 16:59 Patient arrives today for evaluation of high blood pressure and concern for ec2 bradycardia. Patient had a recent CABG approximately 2 months ago. Patient reports that she was at cardiac rehab and noted to have elevated blood pressures in the systolics 170s to 200s. Patient reports that maybe she has some dizziness however is asymptomatic at this time. Patient reports no difficulty breathing, no chest pain, no abdominal pain. Patient reports that she recently went up on her metoprolol from 12.5 mg to 50 mg. . Historical: - Allergies: 16:23 No Known Allergies; bp - PMHx: 16:23 aortic aneurysm; Hypertensive disorder; bp - PSHx: 16:23 Coronary artery bypass graft; foot surgery; bp - Immunization history:: Adult Immunizations up to date. - Infectious Disease History:: Denies. - Social history:: Smoking status: Patient denies any tobacco usage or history of. ROS: 16:59 Constitutional: as per hpi ec2 Exam: 16:59 Constitutional: GEN: NAD Head: atraumatic Eyes: EOMI Ears: External ears are ec2 normal. CV: regular rate LUNGS: no respiratory distress ABD: non-distended SKIN: no evidence of rashes MSK: no evidence of trauma NEURO: moves all extremities equally Vital Signs: 16:22 BP 165 / 86; Pulse 51; Resp 16; Temp 98; Pulse Ox 100% ; bp 17:05 BP 166 / 69; Pulse 54; Resp 18; Pulse Ox 99% on R/A; rs5 17:56 BP 173 / 74; Pulse 55; Resp 17; Pulse Ox 99% on R/A; rs5 18:34 BP 153 / 66; Pulse 49; Resp 16; Pulse Ox 98% ; ko1 19:24 Pulse 59; Resp 17; Pulse Ox 97% ; vc1 19:26 BP 138 / 74; vc1 22:50 BP 218 / 91; Pulse 50; Resp 17; Pulse Ox 99% ; vc1 23:00 BP 147 / 61; Pulse 56; Resp 16; Pulse Ox 100% on R/A; km8 23:42 BP 135 / 61; Pulse 60; Resp 16; Pulse Ox 100% ; vc1 MDM: 16:19 Patient medically screened. ec2 16:59 Data reviewed: vital signs. ED course: Patient arrives today for evaluation of elevated ec2 blood pressure and bradycardia. Examination remarkable for well-appearing nontoxic individual with reassuring hemodynamics she was asymptomatic at this time. Will obtain EKG, chest x-ray, lab work. Differential diagnosis includes arrhythmia, electrolyte disturbances, anemia.. 17:00 ED course: EKG independently reviewed and interpreted by me, shows normal sinus rhythm, ec2 rate of 54, no acute ST segment elevations, intervals are nonactionable, first-degree AV block noted.. 17:30 ED course: Metabolic profile with renal dysfunction with a creatinine of 1.4 and a GFR ec2 of 38. Troponin is within normal ranges. . 17:32 ED course: Chest x-ray independently reviewed and interpreted by me, shows ec2 cardiomegaly, no evidence of volume overload. . 17:38 ED course: I discussed case with Dr. Raya, cardiology who recommended observation and ec2 holding metoprolol tonight. I discussed case with hospitalist, pending admission.. 17:40 ED course: Of note regarding patient's hospitalization and primary care doctor. Patient ec2 was previously seeing Dr. Boone however states that they recently have changed insurance and are no longer seeing Dr. Boone and in the process of seeing a new primary care doctor. Accordingly I will admit to the hospitalist and not to Dr. Boone. . 17:41 ED course: MDM: Differential diagnosis as documented above in ED course; All lab tests ec2 ordered and reviewed as documented above; Independent interpretation of tests: EKG as above; radiograph as above; External records reviewed: Previous ED visit and associated lab work; History gathered from independent historian: Yes; family member; I discussed the case with: Hospitalist, cardiology . 07/13 16:20 Order name: Basic Metabolic Panel; Complete Time: 17:29 ec2 07/13 16:20 Order name: CBC with Diff; Complete Time: 17:15 ec2 07/13 16:20 Order name: Troponin HS; Complete Time: 17:29 ec2 07/13 22:18 Order name: CBC with Automated Diff EDMS 07/13 22:18 Order name: CBC with Automated Diff EDMS 07/13 22:18 Order name: Comprehensive Metabolic Panel EDMS 07/13 22:18 Order name: Comprehensive Metabolic Panel EDMS 07/13 22:18 Order name: Troponin High Sensitivity EDMS 07/13 22:18 Order name: Troponin High Sensitivity EDMS 07/13 16:20 Order name: XRAY Chest (1 view) ec2 07/13 16:20 Order name: EKG; Complete Time: 16:20 ec2 07/13 22:18 Order name: CONS Physician Consult EDMS 07/13 16:20 Order name: Cardiac monitoring; Complete Time: 16:43 ec2 07/13 16:20 Order name: EKG - Nurse/Tech; Complete Time: 16:54 ec2 07/13 16:20 Order name: IV Saline Lock; Complete Time: 16:43 ec2 07/13 16:20 Order name: Labs collected and sent; Complete Time: 16:43 ec2 07/13 16:20 Order name: O2 Per Protocol; Complete Time: 16:43 ec2 07/13 16:20 Order name: O2 Sat Monitoring; Complete Time: 16:43 ec2 07/13 16:55 Order name: Labs - recollect needed: recollect light green top; Complete Time: 17:01 bd Administered Medications: 22:55 Drug: hydrALAZINE IVP 10 mg IVP once Route: IVP; Site: left antecubital; km8 23:19 Follow up: Response: No adverse reaction; Blood pressure is lowered km8 Disposition Summary: 07/14/23 17:39 Hospitalization Ordered Notes: Hospitalization Status: Inpatient Admission ec2 Provider: Helga Snow ec2 Location: Telemetry/MedSurg (observation)(07/14/23 17:39) ec2 Condition: Stable(07/14/23 17:39) ec2 Problem: an acute exacerbation ec2 Symptoms: have improved ec2 Bed/Room Type: Standard ec2 Room Assignment: 208(07/14/23 22:48) rv1 Diagnosis - Essential (primary) hypertension(07/14/23 17:39) ec2 - Bradycardia, unspecified(07/14/23 17:39) ec2 Forms: - Medication Reconciliation Form ec2 - SBAR form ec2 - Leadership Thank You Letter ec2 Signatures: Dispatcher [employer] Marlene Salinas Brian, RN RN bp Doris Trevizo rv1 Elliott Tan MD MD ec2 Isabel Mccoy RN RN km8 Corrections: (The following items were deleted from the chart) 17:39 17:39 Home ec2 ec2 17:39 17:39 Stable ec2 ec2 17:39 17:39 Essential (primary) hypertension ec2 ec2 17:39 17:39 Bradycardia, unspecified ec2 ec2 22:48 17:39 ec2 rv1
--- NOTE | 2023-07-14 18:34 | RAD REPORT ---
EXAM DESCRIPTION: RADChest Single View07/14/2023 5:07 pm CLINICAL HISTORY: CHEST PAIN COMPARISON: Chest Single View dated 06/11/2023 TECHNIQUE: Portable AP view of the chest. FINDINGS: The lungs are clear. No pneumothorax or effusion. Mild cardiomegaly. Sequelae of aortic v alve replacement. Mediastinal contours are unremarkable. IMPRESSION: No acute pulmonary process. Stable mild cardiomegaly.
--- NOTE | 2023-07-14 22:08 | P.HP ---
Certification for Inpatient Patient admitted to: Observation With expected LOS: <2 Midnights Patient will require the following post-hospital care: None Practitioner: I am a practitioner with admitting privileges, knowledge of patient current condition, hospital course, and medical plan of care. Services: Services provided to patient in accordance with Admission requirements found in Title 42 Section 412.3 of the Code of Federal Regulations Patient History Date of Service: 07/14/23 Reason for admission: High blood pressure History of Present Illness: 83-year-old female with history of hypertension, CAD status post CABG 2 months ago with valve replacement, follows with cardiology Dr. Raya, currently in cardiac rehab I was noted today to have blood pressure in the 170s to 200s systolic. Patient also states she may have felt a bit of dizziness. She presented to the ED because of persistent elevated blood pressure. On arrival in the ED blood pressure was in the 160s over 71 with heart rate of 51. She has recently had her metoprolol dose increased to 50 mg daily. She was otherwise asymptomatic. Laboratory workup was unremarkable except for creatinine of 1.4 baseline of 0.991-month ago. Cardiology with Dr. Raya recommended admission for observation. Patient has been admitted for observation now Allergies No Known Allergies Allergy (Verified 06/25/21 07:47) Home Medications: Amiodarone HCl [Cordarone*] 200 mg PO BID 06/11/23 Cyanocobalamin (Vitamin B-12) [Vitamin B-12] 500 mg PO DAILY 06/11/23 Ferrous Sulfate [Ferrous Sulfate*] 325 mg PO DAILY 06/11/23 Metoprolol Tartrate [Lopressor*] 12.5 mg PO BID 06/11/23 Apixaban [Eliquis] 5 mg PO BID #60 06/12/23 - Past Medical/Surgical History -: Hypertension -: CAD -: CABG 05/22/23 - Social History Smoking Status: Never smoker Smoking therapy provided: No Patient receptive to therapy: No Alcohol use: No CD- Drugs: No Caffeine use: Yes Place of Residence: Home Review of Systems 10-point ROS is otherwise unremarkable Cardiovascular: Light [place]adedness Physical Examination - Physical Exam General: Alert, In no apparent distress, Oriented x3 HEENT: Atraumatic, Normocephalic, PERRLA Neck: Supple, 2+ carotid pulse no bruit, JVD not distended Respiratory: Clear to auscultation bilaterally, Normal air movement Cardiovascular: No edema, Normal pulses, Regular rate/rhythm, Normal S1 S2 Gastrointestinal: Normal bowel sounds, Soft and benign, Non-distended Musculoskeletal: No clubbing, No swelling Integumentary: No rashes, No breakdown Neurological: Normal gait, Normal speech, Normal strength at 5/5 x4 extr, Cranial nerves 3-12 intact - Studies Laboratory Data (last 24 hrs) 07/14/23 07/14/23 16:41 16:00 WBC 5.70 Hgb 10.7 L Hct 34.0 L Plt Count 166 Sodium 138 Potassium 3.9 BUN 22 H Creatinine 1.40 H Glucose 110 H Assessment and Plan - Plan Impression Hypertensionuncontrolled Acute kidney injury Bradycardiasymptomatic Recent CABG Plan Will admit to observation Start gentle IV fluid with normal saline Monitor creatinine trend Add hydralazine for BP control Continue metoprolol Subcutaneous Lovenox for DVT prophy Cardiology consult in a.m. 1 keep in telemetry monitoring Serial sets of cardiac enzyme - Advance Directives Does patient have a Living Will: No Does patient have a Durable POA for Healthcare: No Time Spent Managing Pts Care (In Minutes): 65
[2023-07-14] MEDS ORDERED: ALBUTEROL 2.5 MG/3 ML NEB SOL NEB PRN (22:09)
[2023-07-14] MEDS ORDERED: MORPHINE 2 MG/ML SYR IV PRN (22:09)
[2023-07-14] MEDS ORDERED: ONDANSETRON 4 MG/2 ML VIAL IV PRN (22:09)
[2023-07-14] MEDS ORDERED: HYDRALAZINE HCL 20 MG/ML VIAL IV PRN (22:16)
[2023-07-14] MEDS ORDERED: Oxycodone HCl/Acetaminophen 5/325 MG TAB PO PRN (22:16)
[2023-07-14] MEDS: HYDRALAZINE HCL 25 MG TABLET PO SCH (22:17)
[2023-07-14] MEDS ORDERED: HYDRALAZINE HCL 20 MG/ML VIAL ONE (22:55)
[2023-07-15 00:54] VITALS: O2SAT 100
[2023-07-15 05:15] VITALS: BMI 28.0
[2023-07-15] MEDS: NA CHLORIDE 0.9% 1,000 ML IV SCH (05:59)
[2023-07-15 06:01] LABS: Absolute Eosinophils 0.1 K/uL (0-0.5); Absolute Lymphocytes (CBC) 1.3 K/uL (0.7-4.9); Absolute Monocytes 0.3 K/uL (0.1-1.3); Absolute Neutrophil 2.2 K/uL (1.8-8.0); Basophils % 0.7 % (0-1.3); Eosinophils % 1.6 % (0-4.4); Hematocrit 29.5 % (36.0-45.0); Hemoglobin 9.8 g/dL (12.0-15.0); MCH 30.8 pg (27.0-35.0); MCHC 33.2 g/dL (32.0-36.0); MCV 92.7 fL (80-100); MPV 8.1 fL (7.6-11.3); Monocytes % 7.4 % (3.3-12.3); Neutrophils % 56.3 % (41.7-73.7); Nucleated Red Blood Cells % 0.2 % (0-0); Platelets 145 thou/uL (152-406); RBC Red Blood Cell Count 3.18 M/uL (3.86-4.86); Red Cell Distribution Width 17.9 % (12.1-15.2)
[2023-07-15 06:20] LABS: Albumin 2.6 g/dL (3.4-5.0); Albumin/Globulin Ratio 0.8 (1.1-1.8); Anion Gap 7.8 mEq/L (5.0-15.0); Bilirubin Total 0.5 mg/dL (0.2-1.0); Globulin 3.3 g/dL (2.3-3.5); Potassium 3.8 mEq/L (3.5-5.1); Protein, Total 5.9 g/dL (6.4-8.2); Troponin High Sensitivity 13.5 pg/mL (<58.9)
--- NOTE | 2023-07-15 07:50 | P.PN ---
Date of Service: 07/15/23 Subjective: felt some mild lightheadedness when her systolic BP was noted to be elevated in 170-200s at cardiac rehab yesterday prior to rehab yesterday BP had been running around 120-140s consistently. Also reports intermittent bradycardia at home - 40-50s at times. Has been compliant with home meds. Does report her metoprolol was increased ~3 weeks ago ROS: 10 point ROS as noted above, otherwise negative Physical Exam: GEN: Alert, oriented, NAD HEENT: Normal conjunctiva, sclera anicteric CV: Regular rate and rhythm, no edema Pulm: Nonlabored respirations on room air, clear bilaterally ABD: Soft, nontender, nondistended Neuro: Normal speech, normal affect vitals reviewed Problem List: Uncontrolled Hypertension Symptomatic Bradycardia CAD s/p CABG with valve replacement (05/22/23 @[facility]) SUMANTH hx atrial fibrillation hx iron deficiency anemia Uncontrolled Hypertension Symptomatic Bradycardia CAD s/p CABG with valve replacement (05/22/23 @[facility]) Reports elevated blood pressure readings at home with associated dizziness/lightheadedness, 170-200s systolic No chest pain or shortness of breath baseline BP has been consistently around 120-140s up until cardiac rehab yesterday. Also reports intermittent bradycardia at home - 40-50s at times. Recently had her metoprolol increased to 50 mg ~3 weeks ago. Follow[address] with Dr. Raya Cardiology consulted trend troponins, negative so far. Monitor on telemetry CXR (07/13): mild cardiomegaly hydralazine PRN SUMANTH improved with IV fluids Continue to monitor renal function IVF dc'd 07/14 hx atrial fibrillation confirm home meds, restart as appropriate continue metoprolol 25 mg BID hx iron deficiency anemia continue ferrous sulfate VTE: Code: Full Dispo: Home, ~1-2 days Pending cardiac recs / stable BP/HR
[2023-07-15] MEDS ORDERED: METOPROLOL TAR 50 MG TAB PO SCH (09:00)
[2023-07-15] MEDS: FAMOTIDINE 20 MG TAB PO SCH (10:06)
--- NOTE | 2023-07-15 11:24 | P.CNS ---
Date of Consult: 07/15/23 Chief Complaint: High blood pressure History of Present Illness: Patient with PMH of CAD s/p CABG and valve replacement 2 months ago, presented with high BP and low HR while in cardiac rehab, denies any cardiac complains. Allergies No Known Allergies Allergy (Verified 06/25/21 07:47) Home Medications: Amiodarone HCl [Cordarone*] 200 mg PO BID 06/11/23 Cyanocobalamin (Vitamin B-12) [Vitamin B-12] 500 mg PO DAILY 06/11/23 Ferrous Sulfate [Ferrous Sulfate*] 325 mg PO DAILY 06/11/23 Metoprolol Tartrate [Lopressor*] 25 mg PO BID 06/11/23 Apixaban [Eliquis] 5 mg PO BID #60 06/12/23 Triamterene/Hydrochlorothiazid [Triamterene-Hctz 37.5-25 mg Tb] 37.5 tab PO DAILY 07/15/23 - Past Medical/Surgical History -: Hypertension -: CAD -: CABG 05/22/23 - Social History Alcohol use: No CD- Drugs: No Caffeine use: No Place of Residence: Home Review of Systems 10-point ROS is otherwise unremarkable Physical Examination Temp Pulse Resp BP Pulse Ox 97.2 F 59 18 133/60 95 07/15/23 08:00 07/15/23 08:00 07/15/23 08:00 07/15/23 08:00 07/15/23 08:00 General: Alert, In no apparent distress HEENT: Atraumatic, PERRLA, Mucous membr. moist/pink, EOMI, Sclerae nonicteric Neck: Supple, 2+ carotid pulse no bruit, No LAD, Without JVD or thyroid abnormality Respiratory: Clear to auscultation bilaterally, Normal air movement Cardiovascular: Regular rate/rhythm, Normal S1 S2 Gastrointestinal: Normal bowel sounds, No tenderness Musculoskeletal: No tenderness Integumentary: No rashes Neurological: Normal gait, Normal speech, Normal tone, Normal affect Lymphatics: No axilla or inguinal lymphadenopathy Laboratory Data (last 24 hrs) 07/14/23 07/14/23 16:41 16:00 WBC 5.70 Hgb 10.7 L Hct 34.0 L Plt Count 166 Sodium 138 Potassium 3.9 BUN 22 H Creatinine 1.40 H Glucose 110 H - Problems (1) HTN (hypertension) Current Visit: Yes Status: Acute Plan: lower lopressor to 25 mg po BID Contitinue triameterene/HCTZ continue Hydralazine 25 mg po BID (2) CAD (coronary artery disease) of artery bypass graft Current Visit: Yes Status: Acute Plan: stable, no chest pain and troponin negative. (3) Atrial fibrillation Current Visit: No Status: Acute Plan: Sinus bradycardia lower amiodarone to 200 mg daily lower lopressor to 25 mg po BID
[2023-07-15] MEDS ORDERED: FERROUS SULFATE 325 MG TAB PO SCH (12:00)
--- NOTE | 2023-07-15 12:58 | P.DS ---
Admission Date: 07/14/23 Discharge Date: 07/15/23 Disposition: ROUTINE DISCHARGE Discharge Condition: GOOD Reason for Admission: High blood pressure Consultations: Cardiology - Dr. Mccrary Brief History of Present Illness: 83yo F, PMH: HTN, CAD s/p CABG ~2 months ago with aortic valve replacement was sent to ER due to being found to be hypertensive to 170s-200s systolic at cardiac rehab. She reports feeling slightly dizzy at that time and hearing her heart beat. On arrival in the ED blood pressure was in the 160s over 71 with heart rate of 51. She has recently had her metoprolol dose increased to 50 mg BID. She was otherwise asymptomatic. Laboratory workup was unremarkable except for creatinine of 1.4 baseline of 0.991-month ago. Cardiology with Dr. Raya recommended admission for observation. Hospital Course: Problem List: Uncontrolled Hypertension Symptomatic Bradycardia CAD s/p CABG with aortic valve replacement (05/22/23 @[facility]) SUMANTH hx atrial fibrillation hx iron deficiency anemia Physician Discharge Instructions: Patient presented with elevated blood pressure readings (systolic 200s) with associated mild lightheadedness and bradycardia (40-50s). Cardiology was consulted and recommended lowering metoprolol to 25 mg twice daily from 50 mg, in addition to adding hydralazine 25 mg twice daily. No further cardiac work up given negative troponins and no chest pain. Chest xray noted mild cardiomegaly otherwise negative. Patient was feeling better, back to normal self, dizziness resolved, and was deemed stable for discharge. Patient was noted to have mild SUMANTH on admission and quickly resolved with IV fluids within 12 hours. Suspect prerenal SUMANTH secondary to dehydration. Medications: Metoprolol decreased to 25 mg twice daily (family stated will cut 50mg in half since they just picked up new prescription) Hydralazine 25 mg twice daily - hold if systolic blood pressure < 115 continue other home medications as previously prescribed continue amiodarone 200mg daily Follow up: PCP 3-5 days Cardiology 2-4 weeks Please call to schedule / confirm appointments Physical Exam: GEN: Alert, oriented, NAD HEENT: Normal conjunctiva, sclera anicteric CV: Regular rate and rhythm, no edema, +murmur Pulm: Nonlabored respirations on room air, clear bilaterally ABD: Soft, nontender, nondistended Neuro: Normal speech, normal affect Vital Signs/Physical Exam: Temp Pulse Resp BP Pulse Ox 97.2 F 59 18 133/60 95 07/15/23 08:00 07/15/23 08:00 07/15/23 08:00 07/15/23 08:00 07/15/23 08:00 Laboratory Data at Discharge: WBC 3.90 thou/uL (4.3-10.9) L 07/15/23 05:50 Hgb 9.8 g/dL (12.0-15.0) L D 07/15/23 05:50 Hct 29.5 % (36.0-45.0) L 07/15/23 05:50 Plt Count 145 thou/uL (152-406) L 07/15/23 05:50 Sodium 141 mEq/L (136-145) 07/15/23 05:50 Potassium 3.8 mEq/L (3.5-5.1) 07/15/23 05:50 BUN 18 mg/dL (7-18) 07/15/23 05:50 Creatinine 1.13 mg/dL (0.55-1.02) H 07/15/23 05:50 Glucose 103 mg/dL (74-106) 07/15/23 05:50 Total Bilirubin 0.5 mg/dL (0.2-1.0) 07/15/23 05:50 AST 14 U/L (15-37) L 07/15/23 05:50 ALT 19 U/L (13-56) 07/15/23 05:50 Alkaline Phosphatase 74 U/L (45-117) 07/15/23 05:50 Home Medications: Amiodarone HCl [Cordarone*] 200 mg PO DAILY 06/11/23 Cyanocobalamin (Vitamin B-12) [Vitamin B-12] 500 mg PO DAILY 06/11/23 Ferrous Sulfate [Ferrous Sulfate*] 325 mg PO DAILY 06/11/23 Metoprolol Tartrate [Lopressor*] 25 mg PO BID 06/11/23 Apixaban [Eliquis] 5 mg PO BID #60 06/12/23 Hydralazine HCl 25 mg PO BID 30 Days #60 tab 07/15/23 Triamterene/Hydrochlorothiazid [Triamterene-Hctz 37.5-25 mg Tb] 37.5 tab PO DAILY 07/15/23 New Medications: Hydralazine HCl 25 mg PO BID 30 Days #60 tab Physician Discharge Instructions: Physician Discharge Instructions: Patient presented with elevated blood pressure readings (systolic 200s) with associated mild lightheadedness and bradycardia (40-50s). Cardiology was consulted and recommended lowering metoprolol to 25 mg twice daily from 50 mg, in addition to adding hydralazine 25 mg twice daily. No further cardiac work up given negative troponins and no chest pain. Chest xray noted mild cardiomegaly otherwise negative. Patient was feeling better, back to normal self, dizziness resolved, and was deemed stable for discharge. Patient was noted to have mild SUMANTH on admission and quickly resolved with IV fluids within 12 hours. Suspect prerenal SUMANTH secondary to dehydration. Medications: Metoprolol decreased to 25 mg twice daily (family stated will cut 50mg in half since they just picked up new prescription) Hydralazine 25 mg twice daily - hold if systolic blood pressure < 115 continue other home medications as previously prescribed continue amiodarone 200mg daily Follow up: PCP 3-5 days Cardiology 2-4 weeks Please call to schedule / confirm appointments Followup: Nathan Raya MD [Primary Care Provider] - (Follow up in 2-4 weeks) Time spent managing pt's care (in minutes): 45
--- NOTE | 2023-07-15 13:20 | EKG ---
Test Date: 2023-07-14 Test Time: 16:50:45 Film And Video Editor: MAYITO MEASUREMENT RESULTS: Intervals: Rate: 54 MI: 218 QRSD: 74 QT: 534 QTc: 506 [place]: P: 61 MI: 218 QRS: 51 T: 53 INTERPRETIVE STATEMENTS: Sinus bradycardia with 1st degree AV block Cannot rule out Anterior infarct, age undetermined Abnormal ECG Compared to ECG 06/11/2023 10:14:32 Myocardial infarct finding now present T-wave abnormality no longer present Electronically Signed On 07-15-23 13:17:59 CDT by Nathan Raya
[2023-07-15 14:43] VITALS: BP 121/58; TEMP 98
[2023-07-15] MEDS ORDERED: METOPROLOL TAR 25 MG TAB PO SCH (21:00)
== END 2023-07-15 14:26 | disposition home or self-care (01) ==
LOC: ER 16:06 → ERHOLD 22:09 → 2ND 23:25
PROVIDERS: ADMIT Internal Medicine; ATTEND Hospitalist
DX: I10 Essential (primary) hypertension (principal); R00.1 Bradycardia, unspecified; I25.10 Atherosclerotic heart disease of native coronary artery without angina pectoris; N17.9 Acute kidney failure, unspecified; I48.91 Unspecified atrial fibrillation; I51.7 Cardiomegaly; Z79.01 Long term (current) use of anticoagulants; Z95.1 Presence of aortocoronary bypass graft; Z95.2 Presence of prosthetic heart valve
CPT/HCPCS: 93005; 85025 ×2; 80048; 36415; 84484 ×2; 80053; 71045; 96374; 99285; J0360; J7030; G0378